=== PATIENT | male | born 1965 | race African-American/Black ===

== ENCOUNTER 2017-12-28 18:19 | Emergency (ER) | payer OTHER, SELFPAY ==
[~2017-12-28] VITALS: Ht 188 cm; Wt 202.0 kg
[2017-12-28 19:27] LABS: MICROSCOPIC AUTO
[2017-12-28 19:29] LABS: CULTURE INDICATED? NO
[2017-12-28] MEDS ORDERED: SODIUM CHLORIDE 0.9% 1,000ML IVBOLUS ONE (19:30)
[2017-12-28 19:46] LABS: ALANINE AMINOTRANSFERASE 34 U/L (12-78); ALBUMIN 3.4 g/dL (3.4-5.0); ANION GAP 8 mmol/L (5-15); CHLORIDE 98 mmol/L (98-107); CREATININE 1.61 mg/dL (0.7-1.3)
[2017-12-28 19:48] LABS: ALKALINE PHOSPHATASE 82 U/L (45-117); BILIRUBIN,TOTAL 0.6 mg/dL (0.2-1.0); TOTAL PROTEIN 9.3 g/dL (6.4-8.2)
[2017-12-28 19:52] LABS: MEAN CORPUSCULAR HEMOGLOBIN 30.3 pg (27.5-34.5); MEAN CORPUSCULAR HGB CONC 33.3 g/dL (33.2-36.2); MEAN PLATELET VOLUME 9.3 fL (7.4-10.4); PLATELET COUNT 308 x10^3/uL (130-400); RED BLOOD COUNT 4.93 x10^6/uL (4.38-5.82); RED CELL DISTRIBUTION WIDTH 13.4 % (9.4-14.8)
[2017-12-28 20:05] LABS: MD YES
[2017-12-28 20:07] LABS: BASOS#(MANUAL) 0.13 x10^3/uL (0-0.1); BASOS% (MANUAL) 1 % (0-1); LYMPH#(MANUAL) 3.67 x10^3/uL (1-3.4); LYMPHS% (MANUAL) 28 % (22-44); MONOS#(MANUAL) 0.39 x10^3/uL (0.3-2.7); MONOS% (MANUAL) 3 % (2-9); REACTIVE LYMPHS # (MANUAL) 1.31 x10^3/uL (0-0); REACTIVE LYMPHS % (MANUAL) 10 % (0-0); SEGS% (MANUAL) 58 % (42-75)
[2017-12-28 20:08] LABS: <PLATELET ESTIMATE> ADEQUATE; <RBC MORPHOLOGY> NORMAL
[2017-12-28 20:09] LABS: LARGE PLATELETS 1+
[2017-12-28] MEDS ORDERED: INSULIN REGULAR 100 UNITS/ML, 3ML VIAL ONE (20:14)
[2017-12-28 20:24] VITALS: BP 161/91
[2017-12-29] MEDS ORDERED: INSULIN REGULAR 100 UNITS/ML, 3ML VIAL SQ-INSULIN SCH (07:00)
== END 2017-12-28 21:43 | disposition home or self-care (01) ==
LOC: ED 21:20
DX: E11.65 Type 2 diabetes mellitus with hyperglycemia (principal); I10 Essential (primary) hypertension
CPT/HCPCS: 36415; 80053; 81001; 82962; 85025; 96360; 96372; 99284; J7030

== ENCOUNTER 2019-04-05 12:25 | Emergency (ER) | payer SELFPAY ==
[~2019-04-05] VITALS: Ht 188 cm; Wt 177.0 kg
[2019-04-05 13:32] LABS: BASOPHILS # (AUTO) 0.04 x10^3/uL (0-0.1); BASOPHILS % (AUTO) 0 % (0-1); EOSINOPHILS # (AUTO) 0.08 x10^3/uL (0-0.4); EOSINOPHILS % (AUTO) 1 % (1-7); LYMPHOCYTES # (AUTO) 2.67 x10^3/uL (1-3.4); LYMPHOCYTES % (AUTO) 28 % (22-44); MD NO; MEAN CORPUSCULAR HEMOGLOBIN 30.3 pg (27.5-34.5); MEAN CORPUSCULAR HGB CONC 33.4 g/dL (33.2-36.2); MEAN PLATELET VOLUME 8.4 fL (7.4-10.4); MONOCYTES # (AUTO) 0.73 x10^3/uL (0.2-0.8); MONOCYTES % (AUTO) 8 % (2-9); NEUTROPHILS # (AUTO) 6.17 x10^3/uL (1.8-6.8); NEUTROPHILS % (AUTO) 64 % (42-75); PLATELET COUNT 318 x10^3/uL (130-400); RED BLOOD COUNT 4.95 x10^6/uL (4.38-5.82); RED CELL DISTRIBUTION WIDTH 13.6 % (9.4-14.8)
[2019-04-05 13:43] LABS: ALBUMIN 3.4 g/dL (3.4-5.0); ANION GAP 6 mmol/L (5-15); CALCIUM 9.3 mg/dL (8.5-10.1); CHLORIDE 105 mmol/L (98-107)
[2019-04-05 13:45] LABS: CREATININE 1.44 mg/dL (0.7-1.3)
--- NOTE | 2019-04-05 14:44 | NUR ---
emilee presents to the er with his with pain to right foot all over ankle down. this began one month ago. he has no history of gout. got patient in bed. rails up, on monitor.
[2019-04-05] MEDS ORDERED: GLIP2.5T16 PO (14:51)
[2019-04-05] MEDS ORDERED: METO25TA91 PO (14:51)
--- NOTE | 2019-04-05 15:34 | NUR ---
More garrisonleeann in ED - 04/05/19 at 1545 by NATALI discharge teaching reviewed, shows understanding. patient has driving him home.
[2019-04-05] MEDS ORDERED: SODIUM CHLORIDE FLUSH 10ML SYR IVF ONE (16:00)
--- NOTE | 2019-04-05 17:29 | NUR ---
mri called and need GFR for contrast. told md Justin.
--- NOTE | 2019-04-05 17:40 | NUR ---
patient left for MRI.
--- NOTE | 2019-04-05 17:58 | NUR ---
patient in mri
[2019-04-05] MEDS ORDERED: GADOBUTROL 10 MMOL/10 ML VIAL ONE (18:19)
--- NOTE | 2019-04-05 18:34 | NUR ---
patient is still in MRI
--- NOTE | 2019-04-05 18:56 | NUR ---
RECEIVED REPORT FROM CASE PATEL TO ASSUME CARE OF PT. PT. OUT OF ROOM FOR MRI AT THIS TIME.
[2019-04-05 19:21] VITALS: BP 142/75
--- NOTE | 2019-04-05 19:23 | NUR ---
PT. HAS RETURNED FROM MRI. VS UPDATED. CALL LIGHT IN REACH. ALL SAFETY MEASURES OBSERVED. PT. DENIES PAIN. DENIES NEEDS AT THIS TIME. AMARILYS.
--- NOTE | 2019-04-05 19:44 | NUR ---
RN TO ROOM TO ANSWER CALL LIGHT. PT. REPORTS HE WOULD LIKE TO CHECK OUT AMA. THIS RN DISCUSSED IMPORTANCE OF WAITING FOR RESULTS OF MRI; RESULTS ARE BACK NOW AND CHART IS UP FOR RECHECK. ERP NOTIFIED THAT PT. WOULD LIKE TO LEAVE NOW.
--- NOTE | 2019-04-05 19:58 | NUR ---
DR. GALAVIZ IN TO DISCUSS PLAN FOR D/C WITH PT. AND . IV REMOVED. PT. GETTING DRESSED. AWAITNG D/C PAPERS.
== END 2019-04-05 20:19 | disposition home or self-care (01) ==
LOC: ED 17:27
DX: G89.29 Other chronic pain (principal); M79.671 Pain in right foot; I10 Essential (primary) hypertension; E11.9 Type 2 diabetes mellitus without complications
CPT/HCPCS: 36415; 73630; 73720; 80048; 82040; 85025; 99284; A9585

== ENCOUNTER 2021-02-25 11:29 | Emergency (ER) | payer SELFPAY ==
[~2021-02-25] VITALS: Ht 188 cm; Wt 202.0 kg
[~2021-02-25 11:29] MED LIST: GLIP2.5T16 PO; METO25TA91 PO
--- NOTE | 2021-02-25 11:49 | NUR ---
Pt brought back from triage with chief complaint of left knee pain for 3 weeks, pt denies injury. CMS intact
[2021-02-25] MEDS ORDERED: KETOROLAC 30 MG/1 ML IM ONE (12:00)
--- NOTE | 2021-02-25 12:06 | NUR ---
AFTER 2ND LITER OF LR FSBS = HI, STAT LAB GLUCOSE ORDERED.
[2021-02-25] MEDS ORDERED: KETOROLAC 30 MG/1 ML ONE (12:09)
--- NOTE | 2021-02-25 12:28 | NUR ---
PT BACK FROM IMAGING
[2021-02-25 12:44] VITALS: BP 141/85
--- NOTE | 2021-02-25 13:12 | NUR ---
discharge instructions reviewed
== END 2021-02-25 13:15 | disposition home or self-care (01) ==
LOC: ED 12:55
DX: S83.412A Sprain of medial collateral ligament of left knee, initial encounter (principal); M25.571 Pain in right ankle and joints of right foot; I10 Essential (primary) hypertension; E11.9 Type 2 diabetes mellitus without complications; X58.XXXA Exposure to other specified factors, initial encounter; Y93.89 Activity, other specified; Y92.89 Other specified places as the place of occurrence of the external cause; Y99.8 Other external cause status
CPT/HCPCS: 73564; 96372; 99283; J1885